=== PATIENT | male | born 1945 | race Caucasian/White ===

== ENCOUNTER 2024-04-14 08:01 | Outpatient (CLI) | payer MEDICARE | END 2024-04-14 08:02 | disposition home or self-care (01) | LOC: NM 08:01 | PROVIDERS: ATTEND Psychiatry & Neurology Neurology | DX: G20.A1 Parkinson's disease without dyskinesia, without mention of fluctuations (principal); R94.8 Abnormal results of function studies of other organs and systems | CPT/HCPCS: 78803; A9584 ×2 ==